=== PATIENT | male | born 1995 | race Caucasian/White ===

== ENCOUNTER 2023-02-23 13:25 | Emergency (ER) | payer OTHER, SELFPAY ==
[2023-02-23 13:41] VITALS: BP 127/74; PULSE 53; RESP 16; TEMP 36.6; O2SAT 100
[2023-02-23 13:44] VITALS: BP 127/74; PULSE 53; RESP 16; TEMP 36.6; O2SAT 100
--- NOTE | 2023-02-23 13:47 | ED.HA ---
HPI - Headache General Chief Complaint: Headache Stated Complaint: Headache Time Seen by Provider: 02/23/23 13:50 Mode of arrival: ambulatory Limitations: no limitations History of Present Illness HPI Narrative: 27-year-old male presents with this started around 11:00 a.m. yesterday. He reports he has taken ibuprofen and Excedrin without relief of headache. He reports he had a low-grade temperature last night, otherwise denies any sick symptoms, malaise, chills, sweats, body aches. Denies runny nose, stuffy nose, sore throat, ear pain. Denies nausea or vomiting, reports decreased appetite MD elicited complaint: headache Related Data Home Medications Medication Instructions Recorded Confirmed ibuprofen 200 mg capsule 200 mg PO Q6H PRN Headache 02/23/23 02/23/23 Allergies Allergy/AdvReac Type Severity Reaction Status Date / Time Penicillins Allergy Rash Verified 02/23/23 13:43 Review of Systems Review of Systems: CONSTITUTIONAL: Denies malaise, chills, sweats. Reports low-grade fever last night EYES: Denies visual changes, redness, or discharge. ENT: Denies rhinorrhea, congestion, sinus pain, otalgia or sore throat. CARDIOVASCULAR: Denies chest pain, palpitations, or edema. RESPIRATORY: Denies cough or dyspnea. GASTROINTESTINAL: Denies abdominal pain, nausea, vomiting, diarrhea. Reports decreased appetite SKIN: Denies rash or itching. MUSCULOSKELETAL: Denies back pain, joint pain, or myalgia. NEUROLOGIC: Denies numbness, weakness. Reports headache. PSYCHIATRIC: Denies anxiety or depression. All systems reviewed & are unremarkable except as noted in HPI and below PMFSH Comments At time of signature, agree with nursing past medical, surgical, social and family history. There is no relevant family history pertinent to the presenting complaint Exam Narrative: GENERAL: Well-appearing, well-nourished, and in no acute distress. HEAD: Normocephalic, atraumatic. EYES: PERRLA, sclera clear, and EOMI. No nystagmus. ENT: Nares clear, turbinates pink, no rhinorrhea or epistaxis. Mucous membranes moist. TM pearly lerma with sharp light reflex bilaterally; no tragal tenderness. Oropharynx without erythema or lesions. Tonsils not enlarged and without exudate. NECK: Supple. No lymphadenopathy. No jugular venous distension, thyromegaly, or carotid bruits. Carotids were easily palpable bilaterally. CHEST: No respiratory distress. Clear to auscultation. No bony deformities, no asymmetry. Speaks in full sentences. HEART: Regular rate and rhythm. No murmur heard. Normal peripheral pulses. EXTREMITIES: Normal range of motion. No edema. Normal strength and sensation. SKIN: Warm, dry, no visible rash. NEURO: Alert and oriented x3. No focal deficits. Cranial nerves II through XII grossly intact PSYCH: Normal mood and affect Course Course Emergency Course: Patient was given 60 mg Toradol IM. After 15 minutes patient reports pain went from a 9 to a 6 or 7. His strep and COVID tests are negative. Through shared decision making patient has decided to go home with a prescription for Imitrex and understands reasons to go to the emergency room if his symptoms worsen or do not improve Patient is aware of, understands and agrees to treatment plan. Anticipatory guidance given. Patient agrees to follow-up as directed and is aware of reasons to seek care at the emergency department. Portions of this record may have been created with voice recognition software Level of Care: Express Care Visit Vital Signs Vital signs: Vital Signs Temperature 97.8 F 02/23/23 13:41 Pulse Rate 53 L 02/23/23 13:41 Respiratory Rate 16 02/23/23 13:41 Blood Pressure 127/74 02/23/23 13:41 Pulse Oximetry 100 02/23/23 13:41 Oxygen Delivery Room Air 02/23/23 13:41 Temperature 97.8 F 02/23/23 13:44 Pulse Rate 53 L 02/23/23 13:44 Respiratory Rate 16 02/23/23 13:44 Blood Pressure 127/74 02/23/23 13:44 Pulse Oximetry 100
[2023-02-23] MEDS: KETOROLAC (*BKC) 60 MG/2 ML VIAL IM (14:05)
--- NOTE | 2023-02-23 14:45 | PC.NURSE ---
pt states shot helped a little bring pain down to a 7
== END 2023-02-23 14:45 | disposition home or self-care (01) ==
PROVIDERS: Emergency Provider Nurse Practitioner
DX: R51.9 Headache, unspecified (principal); Z20.822 Contact with and (suspected) exposure to COVID-19
CPT/HCPCS: 87081; 87426; 87880; 96372; 99213; C9803; G0463; J1885